=== PATIENT | male | born 1970 | race Caucasian/White ===

== ENCOUNTER 2023-01-16 09:06 | Day surgery (SDC) | payer OTHER ==
[~2023-01-16] VITALS: Ht 177.8 cm; Wt 90.9 kg
[2023-01-16 09:34] LABS: COVID AG,FIA SOURCE NASAL SWAB
[2023-01-16] MEDS ORDERED: SODIUM CHLORIDE 0.9% 1,000 ML IV ONE (12:00)
== END 2023-01-16 09:10 | disposition home or self-care (01) ==
LOC: SURGERY 09:06
PROVIDERS: ATTEND Internal Medicine Gastroenterology
DX: K59.00 Constipation, unspecified (principal); Z53.8 Procedure and treatment not carried out for other reasons; Z20.822 Contact with and (suspected) exposure to COVID-19
CPT/HCPCS: 87426; C9803